=== PATIENT | male | born 1960 | race Caucasian/White ===

== ENCOUNTER 2020-07-27 06:05 | Day surgery (SDC) | payer OTHER ==
[~2020-07-27] VITALS: Ht 170.2 cm; Wt 80.0 kg
[2020-07-27] MEDS ORDERED: ZYLOPRIM300 MG PO (07:04)
[2020-07-27] MEDS ORDERED: LIPITOR20 MG PO (07:04)
[2020-07-27] MEDS ORDERED: HYTRIN5 MG PO (07:05)
[2020-07-27] MEDS ORDERED: PEPCID40 MG PO (07:05)
[2020-07-27] MEDS ORDERED: COZAAR50 MG (07:06)
[2020-07-27] MEDS ORDERED: SYNTHROID100 MCG PO (07:06)
[2020-07-27] MEDS ORDERED: GUAIFENESIN PO (07:09)
[2020-07-27] MEDS ORDERED: OMEPRAZOLE40 MG PO (07:10)
[2020-07-27 07:28] VITALS: Ht 170.2 cm; Wt 80.0 kg
[2020-07-27 08:51] LABS: BASOPHILS 1.5 % (0-2); EOSINOPHILS 2.6 % (0-7); HEMATOCRIT 38.8 % (42.0-54.0); HEMOGLOBIN 13.1 g/dL (13.5-17.5); IMMATURE GRANULOCYTES 0.2 % (0-5); LYMPHOCYTE ABS# 1.15 10x3/uL (1.32-3.57); LYMPHOCYTES 24.6 % (15-50); MCH 29.9 pg (26.0-34.0); MCHC 33.8 g/dL (31.0-37.0); MCV 88.6 fL (80.0-100.0); MEAN PLATELET VOLUME 11.3 fL (7.4-10.4); MONOCYTES 5.1 % (2-11); NEUTROPHIL ABS# 3.08 10x3/uL (1.78-5.38); PLATELET COUNT 155 10x3/uL (130-400); RBC 4.38 10x6/uL (4.20-6.10); WBC 4.7 10x3/uL (4.8-10.8)
[2020-07-27 09:02] LABS: APTT 26.9 SECONDS (22.8-39.4); INR 1.05 (0.85-1.17); PROTIME 12.7 SECONDS (11.6-15.0)
--- NOTE | 2020-07-27 13:45 | NUR ---
1118 BP RECHECK: 124/59. IV DC'ED WITH CATH INTACT. UP TO BATHROOM. AMBULATORY WITHOUT DIFFICULTY. VOIDED. DRESSING. ADC GUARDS X'S 2 @ BEDSIDE. Vince VENCES R.N. [id number] PROVIDED WITH D/C INFORMATION INCLUDING: MED REC, SHEET LIKSTING NSAIDS TO HOLD & MC POST ENDOSCOPY INSTRUCTIONS. PT VOICED UNDERSTANDING. COPIES OF LAB, EKG, H&P, & POSTOP NIGHT SENT TO ADC ALONG WITH D/C INFORMATION. RELEASED VIA WHEELCHAIR FROM OPS WITH ADC GUARDS X'S 2. Vince VENCES R.N.
--- NOTE | 2020-07-27 16:58 | OP ---
PATIENT NAME: MATHEW GRAHAM MEDICAL RECORD: [id number] :60 LOCATION:D.OPS ADMISSION DATE: SURGEON: RAJAT JACKSON MD DATE OF OPERATION: 07/27/2020 PREOPERATIVE DIAGNOSES: 1. Gastroesophageal reflux. 2. History of laryngeal cancer. 3. Dysphagia. POSTOPERATIVE DIAGNOSES: 1. Gastroesophageal reflux. 2. History of laryngeal cancer. 3. Dysphagia. 4. 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 No evidence of recurrent laryngeal cancer grossly. 5. Minimal bulbar duodenitis. 6. Questionable Fitzgerald's esophagus. PROCEDURE: 1. Esophagogastroduodenoscopy with antral and distal esophageal biopsies. 2. Esophageal dilation to 54-[place] with a zqqmqih-kkf-dlftlbsr balloon. SURGEON: Rajat Jackson MD INVASIVE CARDIOVASCULAR TECHNOLOGIST: None. BLOOD LOSS: Minimal. ANESTHESIA: IV sedation. COMPLICATIONS: None. The risks, possible complications, and alternatives of the procedure were explained to the patient. He elects to proceed. ENDOSCOPIC COURSE: The patient was conveyed to the endoscopy suite electively on 07/27/2020. IV sedation was induced by the anesthesia staff. A bite block was inserted. A gastroscope was inserted into the mouth. It was advanced easily into the hypopharynx. The esophagus was easily intubated as were the stomach and duodenum. Upon withdrawal, retroflexed and angulus views were obtained. Antral biopsies were obtained. I then advanced a klggkwl-jmx-cxqcerox balloon. I sequentially dilated the entire length of the esophagus to 54-[place]. The gastroscope and balloon dilator were then removed. I readvanced the gastroscope down the esophagus. Distal esophageal biopsies were obtained to rule out Fitzgerald's esophagus. The endoscope was then withdrawn under direct vision. There is no need for the patient to follow up with me in the office unless he develops a complication related to this endoscopic procedure. If we need a postoperative visit, we could do a telephone visit or I could see the patient on one my GI clinic days out at the [facility]. TRANSINT:[id number] Voice Confirmation ID: [id number] DOCUMENT ID: [id number] cc: Dr. Cortés, unknown OPERATIVE REPORT [id number] MATHEW GRAHAM Malia Gonzalez APN, unknown Sent to [facility]. RAJAT JACKSON MD at 2453 CC: [id number] DICTATION DATE: 07/27/20 1105 CHANGE MANAGEMENT SPECIALIST: 07/27/20 1157 [facility] 07/27/20 [facility] [address] [id number]
--- NOTE | 2020-07-27 16:58 | HP ---
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 The patient has some dysphagia, no odynophagia. He does have gastroesophageal reflux and was a volume reflux. He states that his gastroesophageal reflux and the volume reflux that he was having at night, is now improved on famotidine and omeprazole. His laryngeal cancer was treated with chemotherapy and radiation. I am going to plan for an esophageal dilation. He is having no abdominal pain. The risks, possible complications, and alternatives to procedure were explained to the patient. He elects to proceed. PAST MEDICAL AND SURGICAL HISTORY: COPD, hypertension, PVCs, hypothyroidism, on replacement therapy, history of laryngeal cancer. REVIEW OF SYSTEMS: No angina or myocardial infarction. No CVA or seizures. MEDICATIONS: At the present, reviewed. ALLERGIES: No known drug allergies. PHYSICAL EXAMINATION: GENERAL: The patient does not appear acutely ill. He does not appear chronically ill. VITAL SIGNS: Reviewed. EARS: External ears appear normal. EYES: Extraocular movements are intact. NECK: Trachea is midline. CHEST: No intercostal retractions. PULMONARY: Nonlabored. No stridor. IMPRESSION: 1. Dysphagia. 2. Gastroesophageal reflux. 3. History of laryngeal cancer. PLAN: Will be EGD with esophageal dilation. TRANSINT:[id number] Voice Confirmation ID: [id number] DOCUMENT ID: [id number] cc: Dr. Cortés, unknown Malia Gonzalez APN, unknown Sent report to [facility] HISTORY AND PHYSICAL [id number] MATHEW GRAHAM AMOL JACKSON MD at 1658 CC: [id number] DICTATION DATE: 07/27/20 1027 PRODUCTION CORRUGATOR: 07/27/20 1038 [facility] 07/27/20 [place] [id number]
== END 2020-07-27 11:35 ==
LOC: D.OPS 06:05
PROVIDERS: Anesthesiology; ATTEND Surgery
DX: K21.9 Gastro-esophageal reflux disease without esophagitis (principal); Z85.21 Personal history of malignant neoplasm of larynx; R13.10 Dysphagia, unspecified; K29.80 Duodenitis without bleeding; J44.9 Chronic obstructive pulmonary disease, unspecified; I10 Essential (primary) hypertension; E03.9 Hypothyroidism, unspecified